=== PATIENT | female | born 1970 | race Caucasian/White ===

== ENCOUNTER → 2021-06-12 09:40 | Outpatient (CLI) | payer MEDICARE, MEDICAID, SELFPAY ==
[2021-06-12 20:22] LABS: SARS-CoV-2 RNA PCR Negative
== END ==
PROVIDERS: PCP Emergency Medicine; Visit Provider Emergency Medicine
DX: R68.89 Other general symptoms and signs (principal); Z20.822 Contact with and (suspected) exposure to COVID-19
CPT/HCPCS: C9803; U0003; U0005

== ENCOUNTER 2021-09-11 03:33 | Emergency (ER) | payer MEDICARE, MEDICAID, SELFPAY ==
[2021-09-11] VITALS (17 sets, daily range): BP systolic 91–111; BP diastolic 57–75; PULSE 68–87; RESP 12–20; TEMP 36.6; O2SAT 96–99
--- NOTE | ~2021-09-11 | XR_ITS ---
EXAMINATION: XR chest 2V DATE: 09/11/2021 04:33 INDICATION: Chest pain TECHNIQUE: PA and lateral views of the chest are obtained. COMPARISON: 01/29/2016 FINDINGS: The lungs are free of acute opacities. There is no pleural effusion or pneumothorax. The he art size is normal. There is a moderate-sized hiatal hernia. There is moderate thoracic spondylosis. IMPRESSION: 1. No acute cardiopulmonary abnormality. Reviewed, dictated and finalized at location A.
--- NOTE | 2021-09-11 03:36 | ECG_ITS ---
Measurements Intervals [place] Rate: 77 P: 37 [place]: 167 QRS: 27 QRSD: 92 T: 5 QT: 364 QTc: 414 Interpretive Statements SINUS RHYTHM NORMAL ECG NO PREVIOUS ECG AVAILABLE FOR COMPARISON Electronically Signed On 09-12-2021 17:54:43 CDT by Boone Fuller M.D.
[2021-09-11 03:52] LABS: Basophils Absolute Auto 0.1 K/mm3 (0.0-0.1); Basophils Percent Auto 0.8 % (0.2-1.2); Eosinophils Absolute Auto 0.4 K/mm3 (0-0.3); Hematocrit 41.7 % (37.0-47.0); Immature Granulocyte Absolute 0.03 K/mm3 (0.00-0.031); Immature Granulocyte Percent A 0.3 % (0-0.5); Lymphocytes Absolute Auto 3.04 K/mm3 (0.9-3.2); Lymphocytes Percent Auto 31.1 % (18.3-44.2); Mean Corpuscular HGB Conc 33.6 g/dl (32-36); Mean Corpuscular Hemoglobin 32.3 pg (26-34); Mean Corpuscular Volume 96.3 fl (80-100); Mean Platelet Volume 10.2 fl (7.4-10.4); Monocytes Absolute Auto 1.3 K/mm3 (0.1-0.6); Monocytes Percent Auto 13.2 % (2.6-8.5); Neutrophils Percent Auto 50.6 % (45.5-73.1); Platelet Count Result 233 k/mm3 (150-375); Red Blood Count 4.33 M/mm3 (4.2-5.4); Red Cell Distribution Width 11.7 % (11.5-14.5); White Blood Count 9.8 K/mm3 (4.5-10.0)
--- NOTE | 2021-09-11 03:54 | ED.CHESTPAIN ---
HPI - Chest Pain General Chief Complaint: Chest Pain Stated Complaint: abdominal pain Time Seen by Provider: 09/11/21 03:40 Source: patient History of Present Illness HPI narrative: 50-year-old female history of hypertension presenting to the emergency department for evaluation of hypertension and chest pain. Patient states that her blood pressure has been running high for the last few days. Patient started following a low-sodium diet. Patient states since that time she has had intermittent chest tightness and abdominal cramping. Patient states tonight she did have some right arm pain. Patient denies any associated shortness of breath. Patient did have similar symptoms previously and reports that she did have a CTA of the chest that was negative. Patient denies any prior history of PE or DVT. Related Data Allergies Allergy/AdvReac Type Severity Reaction Status Date / Time amphetamine Allergy Unknown TONGUE Verified 11/01/16 16:24 SWELLS dextroamphetamine Allergy Unknown TONGUE Verified 11/01/16 16:24 SWELLS metoclopramide Allergy Unknown JITTERY Verified 11/01/16 16:24 Review of Systems Review of Systems: see HPI All systems reviewed & are unremarkable except as noted in HPI and below Exam Narrative: APPEARANCE: Well appearing, no pain, no distress, well-nourished. HEAD: normocephalic, atraumatic. EYES: PERRLA/EOMI, conjunctivae clear. NOSE: Normal no drainage THROAT: Pharynx clear, no exudate. NECK: Supple. No adenopathy, no masses. RESPIRATORY: Airway patent, respirations nonlabored. Clear to auscultation bilaterally, no rales, rhonchi, wheezing. CARDIOVASCULAR: Regular rate and rhythm without murmurs rubs or gallops. ABDOMINAL: Soft, nontender, nondistended, normal bowel sounds MUSCULOSKELETAL: Moves all extremities. Strength/ROM intact, No edema, No calf tenderness. NEURO: Alert. Cranial nerves II through XII intact. Grossly intact SKIN: Warm, dry. Normal Color PSYCHIATRIC: Normal affect/mood. Course Course Emergency Course: Patient had a negative troponin. Arm pain had been constant for 11 hours. Chest x-ray shows no acute cardiopulmonary abnormality. Vital Signs Vital signs: Vital Signs Temperature 97.9 F 09/11/21 03:36 Pulse Rate 78 09/11/21 03:36 Respiratory Rate 16 09/11/21 03:36 Blood Pressure 111/75 09/11/21 03:36 Pulse Oximetry 99 09/11/21 03:36 Temperature 97.9 F 09/11/21 03:36 Pulse Rate 87 09/11/21 05:31 Respiratory Rate 20 09/11/21 05:31 Blood Pressure 91/57 L 09/11/21 05:31 Pulse Oximetry 99 09/11/21 05:31 MDM - Chest Pain Lab Data Attestation: I reviewed the patient's lab results. Result diagrams: 09/11/21 03:46 09/11/21 03:46 Labs: Lab Results 09/11/21 09/11/21 09/11/21 Range/Units 03:46 03:46 03:47 WBC 9.8 (4.5-10.0) K/mm3 RBC 4.33 (4.2-5.4) M/mm3 Hgb 14.0 (12.0-15.0) g/dL Hct 41.7 (37.0-47.0) % MCV 96.3 (80-100) fl MCH 32.3 (26-34) pg MCHC 33.6 (32-36) g/dl RDW 11.7 (11.5-14.5) % Plt Count 233 (150-375) k/mm3 MPV 10.2 (7.4-10.4) fl Immature Gran % (Auto) 0.3 (0-0.5) % Neut % (Auto) 50.6 (45.5-73.1) % Lymph % (Auto) 31.1 (18.3-44.2) % [place] % (Auto) 13.2 H (2.6-8.5) % Eos % (Auto) 4.0 (0-4.4) % Baso % (Auto) 0.8 (0.2-1.2) % Lymph # (Auto) 3.04 (0.9-3.2) K/mm3 [place] # (Auto) 1.3 H (0.1-0.6) K/mm3 Eos # (Auto) 0.4 H (0-0.3) K/mm3 Baso # (Auto) 0.1 (0.0-0.1) K/mm3 Abs Immat Gran (auto) 0.03 (0.00-0.031) K/mm3 Absolute Neuts (auto) 5.0 (1.3-6.7) K/mm3 Absolute Nucleated RBC 0.0 (0.0-0.012) K/mm3 Nucleated RBC % 0.0 (0.0-0.2) % PT 12.7 (11.1-14.7) Seconds INR 1.0 APTT 27.8 (22.3-36.8) SECONDS D-Dimer (<0.48) ug/mL Sodium 135 L (137-145) mmol/L Potassium 4.1 (3.4-5.0) mmol/L Chloride 102 (98-107) mmol/L Carbon Dioxide 26 (22-30) mmol/L Anion Gap 7 L
[2021-09-11] MEDS: ASPIRIN 81 MG CHEWABLE TABLET 162 MG (04:00)
[2021-09-11 04:01] LABS: Alanine Aminotransferase 18 U/L (4-35); Albumin Level 4.7 g/dL (3.5-5.1); Alkaline Phosphatase 96 U/L (38-126); Anion Gap 7 mmol/L (8-16); Aspartate Amino Transferase 30 U/L (14-36); Bilirubin,Total 0.5 mg/dL (0.2-1.3); Blood Urea Nitrogen 23 mg/dL (7-17); Calcium 9.2 mg/dL (8.4-10.2); Carbon Dioxide 26 mmol/L (22-30); Chloride 102 mmol/L (98-107); Estimated CRCL calculation 88 ml/min; Estimated Glomerular Filt Rate > 60; Glucose 101 mg/dL (65-110); Lipase 152 U/L (23-300); Potassium 4.1 mmol/L (3.4-5.0); Sodium 135 mmol/L (137-145)
[2021-09-11 04:02] LABS: Prothrombin Time 12.7 Seconds (11.1-14.7)
[2021-09-11 04:03] LABS: Partial Thromboplastin Time 27.8 SECONDS (22.3-36.8)
[2021-09-11] MEDS: ALBUTEROL SULFATE NEB 2.5 MG/0.5 ML INH 5 MG INHALATION (04:09)
[2021-09-11 04:22] LABS: D Dimer 0.31 ug/mL (<0.48)
[2021-09-11 04:25] LABS: Troponin I < 0.012 ng/mL (0.000-0.034)
== END 2021-09-11 05:47 | disposition home or self-care (01) ==
PROVIDERS: Emergency Provider Emergency Medicine; PCP Emergency Medicine
DX: R07.89 Other chest pain (principal); M79.601 Pain in right arm; I10 Essential (primary) hypertension
CPT/HCPCS: 36415; 71046; 80053; 83690; 84484; 85025; 85380; 85610; 85730; 93005; 94640; 99284; A9270

== ENCOUNTER 2021-12-20 12:14 | Emergency (ER) | payer OTHER, SELFPAY ==
[2021-12-20] VITALS (7 sets, daily range): BP systolic 112–153; BP diastolic 62–112; PULSE 63–87; RESP 13–18; TEMP 36.4; O2SAT 97–99
--- NOTE | ~2021-12-20 | XR_ITS ---
EXAMINATION: XR chest 2V DATE: 12/20/2021 12:43 INDICATION: Chest pain. Upper abdominal pain. TECHNIQUE: PA and lateral views of the chest were obtained. COMPARISON: Chest radiograph dated 09/11/21 FINDINGS: The lungs remain clear with no focal airspace opacities, pulmonary edema, pleural effusion or pneumot horax. Moderate sized hiatal hernia. Cardiomediastinal silhouette is normal. Mild thoracic spondylosi s. IMPRESSION: 1. No acute cardiopulmonary disease. 2. Moderate-sized hiatal hernia. Reviewed, dictated and finalized at location A.
--- NOTE | 2021-12-20 12:21 | ED.CHESTPAIN ---
HPI - Chest Pain General Chief Complaint: Chest Pain Stated Complaint: chest pain Time Seen by Provider: 12/20/21 12:21 History of Present Illness HPI narrative: The patient is a 51-year-old female with history of gastric sleeve, GERD, hypertension presenting to the emergency department for evaluation anterior chest pain. Patient reports the pain is been present over the past 16 days. Patient reports the pain is intermittent in nature with associated nausea and diaphoresis, but denies nausea or diaphoresis currently. She denies any current neck pain, radiation of pain to the shoulder. She denies palpitations, shortness of breath, cough or hemoptysis. No syncopal or near syncopal events. Patient denies leg swelling or calf pain. Denies recent long car or air travel. No recent immobility or surgical history. She denies history of DVT or PE in the past. No known history of recent COVID infection. Patient reports the pain is aching, burning in nature in the epigastric area of her upper abdomen which radiates into her chest. Patient denies any reflux type symptoms. She denies burping, belching, other abdominal pain or distention. She denies ripping or tearing sensation to the flank. No dysuria, hematuria, constipation or diarrhea. Related Data Home Medications Medication Instructions Recorded Confirmed albuterol sulfate 90 mcg/actuation inhalation 12/20/21 aerosol inhaler bupropion HCl 100 mg tablet mg PO 12/20/21 12/20/21 buspirone 7.5 mg tablet mg 12/20/21 carbamazepine 200 mg tablet mg 12/20/21 irbesartan 150 tablet 12/20/21 mg-hydrochlorothiazide 12.5 mg tablet valacyclovir 500 mg tablet mg 12/20/21 zolpidem 10 mg tablet mg 12/20/21 Allergies Allergy/AdvReac Type Severity Reaction Status Date / Time amphetamine Allergy Unknown TONGUE Verified 12/20/21 12:25 SWELLS dextroamphetamine Allergy Unknown TONGUE Verified 12/20/21 12:25 SWELLS metoclopramide Allergy Unknown JITTERY Verified 12/20/21 12:25 Review of Systems Review of Systems: CONSTITUTIONAL: Denies fever, chills, or sweats. EYES: Denies visual changes, redness, or discharge. ENT: Denies rhinorrhea, congestion, sore throat, or otalgia. CARDIOVASCULAR: Reports chest pain without palpitations or edema. RESPIRATORY: Denies cough or dyspnea. GASTROINTESTINAL: Reports epigastric pain, denies n/v/diarrhea GENITOURINARY: Denies dysuria or hematuria. SKIN: Denies rash or itching. MUSCULOSKELETAL: Denies back pain, joint pain, or myalgia. NEUROLOGIC: Denies headache, numbness, or weakness. [facility] Social History Social History (Updated 12/20/21 @ 13:09 by Luna Ren MD) Smoking status: Never smoker Alcohol intake: never Substance use: never Living arrangements: with family Gender identity (if verbalized by the patient): Female Exam Narrative: GENERAL: Awake, alert, conversant HEAD: Normocephalic, atraumatic. EYES: PERRLA and EOMI. ENT: Nares clear, no rhinorrhea or epistaxis. Mucous membranes moist. NECK: Supple. CHEST: No respiratory distress, breathing even and non labored HEART: Regular rate, sinus rhythm ABDOMEN:Non distended, non tender, positive mild epigastric tenderness, no right upper quadrant tenderness, no rebound, rigidity or guarding EXTREMITIES: Normal range of motion. No edema. SKIN: Warm, dry, no rash. NEURO:No focal deficits. Alert and oriented x3 Course Vital Signs Vital signs: Vital Signs Temperature 36.4 C L 12/20/21 12:17 Pulse Rate 87 12/20/21 12:17 Respiratory Rate 18 12/20/21 12:17 Blood Pressure 153/112 H 12/20/21 12:17 Pulse Oximetry 98 12/20/21 12:17 Oxygen Delivery Room Air 12/20/21 12:17 Temperature 36.4 C L 12/20/21 12:17 Pulse Rate 65 12/20/21 15:01 Respiratory Rate 18 12/20/21 15:01 Blood Pressure 116/70 12/20/21 15:01 Pulse Oximetry 99 12/20/21 15:01 Oxygen Delivery Room Air 12/20/21 12:17 MDM - Chest Pain MDM Narrative M
--- NOTE | 2021-12-20 12:24 | ECG_ITS ---
Measurements Intervals [place] Rate: 93 P: 38 [place]: 153 QRS: 34 QRSD: 97 T: 16 QT: 354 QTc: 441 Interpretive Statements SINUS RHYTHM NONSPECIFIC ST & T-WAVE ABNORMALITY- INFERIOR LEADS BASELINE ARTIFACT- I, II, III, AVR, AVL, AVF, V1-V6 BORDERLINE ECG Electronically Signed On 12-20-2021 22:32:02 CDT by Ilan Fleming D.O.
[2021-12-20 12:35] LABS: Basophils Absolute Auto 0.1 K/mm3 (0.0-0.1); Basophils Percent Auto 0.9 % (0.2-1.2); Eosinophils Absolute Auto 0.4 K/mm3 (0-0.3); Eosinophils Percent Auto 4.2 % (0-4.4); Hematocrit 37.5 % (37.0-47.0); Hemoglobin 12.9 g/dL (12.0-15.0); Immature Granulocyte Absolute 0.01 K/mm3 (0.00-0.031); Immature Granulocyte Percent A 0.1 % (0-0.5); Lymphocytes Absolute Auto 2.65 K/mm3 (0.9-3.2); Lymphocytes Percent Auto 30.7 % (18.3-44.2); Mean Corpuscular HGB Conc 34.4 g/dl (32-36); Mean Corpuscular Hemoglobin 31.9 pg (26-34); Mean Corpuscular Volume 92.8 fl (80-100); Mean Platelet Volume 10.3 fl (7.4-10.4); Monocytes Percent Auto 11.8 % (2.6-8.5); Neutrophils Absolute Auto 4.5 K/mm3 (1.3-6.7); Neutrophils Percent Auto 52.3 % (45.5-73.1); Platelet Count Result 220 k/mm3 (150-375); Red Blood Count 4.04 M/mm3 (4.2-5.4); Red Cell Distribution Width 12.1 % (11.5-14.5); White Blood Count 8.6 K/mm3 (4.5-10.0)
[2021-12-20 12:46] LABS: Prothrombin Time 12.7 Seconds (11.1-14.7)
[2021-12-20 12:47] LABS: Partial Thromboplastin Time 26.8 SECONDS (22.3-36.8)
[2021-12-20 12:52] LABS: Alanine Aminotransferase 27 U/L (6-35); Albumin Level 4.7 g/dL (3.5-5.1); Alkaline Phosphatase 85 U/L (38-126); Anion Gap 10 mmol/L (8-16); Aspartate Amino Transferase 30 U/L (14-36); Bilirubin,Total 0.5 mg/dL (0.2-1.3); Blood Urea Nitrogen 22 mg/dL (7-17); Calcium 9.1 mg/dL (8.4-10.2); Carbon Dioxide 24 mmol/L (22-30); Chloride 105 mmol/L (98-107); Estimated CRCL calculation 73 ml/min; Estimated Glomerular Filt Rate 52; Glucose 106 mg/dL (65-110); Lipase 161 U/L (23-300); Potassium 3.5 mmol/L (3.4-5.0); Sodium 139 mmol/L (137-145)
[2021-12-20] MEDS: ASPIRIN 81 MG CHEWABLE TABLET 324 MG PO (13:00)
[2021-12-20 13:02] LABS: Troponin I < 0.012 ng/mL (0.000-0.034)
[2021-12-20 13:48] LABS: D Dimer 0.34 ug/mL (<0.48)
[2021-12-20 15:51] LABS: Troponin I < 0.012 ng/mL (0.000-0.034)
== END 2021-12-20 16:23 | disposition home or self-care (01) ==
PROVIDERS: Emergency Provider Emergency Medicine
DX: R07.89 Other chest pain (principal); R10.13 Epigastric pain; I10 Essential (primary) hypertension; K21.9 Gastro-esophageal reflux disease without esophagitis
CPT/HCPCS: 36415; 71046; 80053; 83690; 84484; 85025; 85380; 85610; 85730; 93005; 99284; A9270

== ENCOUNTER 2022-05-07 07:01 | Emergency (ER) | payer OTHER, SELFPAY ==
[2022-05-07] VITALS (18 sets, daily range): BP systolic 144–177; BP diastolic 79–97; PULSE 62–98; RESP 11–19; TEMP 36.1; O2SAT 97–100
--- NOTE | ~2022-05-07 | XR_ITS ---
EXAMINATION: XR chest 1V portable DATE: 05/07/2022 07:48 INDICATION: Chest pain and shortness of breath TECHNIQUE: frontal and lateral views of the chest were obtained. COMPARISON: Chest radiograph dated 12/20/2021 FINDINGS: Again seen is gas within a moderate-sized hiatal hernia at the medial left lower lung zone no airspac e opacities, pulmonary edema, pleural effusion or pneumothorax. Heart size is normal. IMPRESSION: 1. No acute cardiopulmonary disease. 2. Moderate-sized hiatal hernia. Reviewed, dictated and finalized at location A. F [employer]
--- NOTE | 2022-05-07 07:03 | ECG_ITS ---
Measurements Intervals [place] Rate: 99 P: 44 [place]: 167 QRS: 29 QRSD: 89 T: 17 QT: 324 QTc: 417 Interpretive Statements SINUS RHYTHM NONSPECIFIC ST AND T WAVE ABNORMALITIES COMPARED TO ECG 12/20/2021 12:22:12 NO SIGNIFICANT CHANGES Electronically Signed On 05-07-2022 11:25:02 [employer] MAN by Jame Angulo M.D.
--- NOTE | 2022-05-07 07:03 | PC.NURSE ---
Patient refused w/c to room.
[2022-05-07 07:25] LABS: Basophils Absolute Auto 0.1 K/mm3 (0.0-0.1); Eosinophils Absolute Auto 0.3 K/mm3 (0-0.3); Eosinophils Percent Auto 4.6 % (0-4.4); Hematocrit 37.4 % (37.0-47.0); Immature Granulocyte Absolute 0.05 K/mm3 (0.00-0.031); Immature Granulocyte Percent A 0.8 % (0-0.5); Lymphocytes Percent Auto 28.1 % (18.3-44.2); Mean Corpuscular HGB Conc 34.8 g/dl (32-36); Mean Corpuscular Hemoglobin 31.7 pg (26-34); Mean Corpuscular Volume 91.2 fl (80-100); Mean Platelet Volume 9.9 fl (7.4-10.4); Monocytes Absolute Auto 0.6 K/mm3 (0.1-0.6); Monocytes Percent Auto 9.1 % (2.6-8.5); Neutrophils Absolute Auto 3.4 K/mm3 (1.3-6.7); Neutrophils Percent Auto 56.4 % (45.5-73.1); Platelet Count Result 200 k/mm3 (150-375); Red Cell Distribution Width 11.8 % (11.5-14.5); White Blood Count 6.1 K/mm3 (4.5-10.0)
[2022-05-07] MEDS: ASPIRIN 81 MG CHEWABLE TABLET 162 MG PO (07:28)
[2022-05-07] MEDS: MORPHINE SULFATE (*CRX) 2 MG/ML INJ IV PUSH (07:29)
--- NOTE | 2022-05-07 07:29 | ED.CHESTPAIN ---
HPI - Chest Pain General Chief Complaint: Chest Pain Stated Complaint: SHELBY, chest tightness, high bp Time Seen by Provider: 05/07/22 07:14 History of Present Illness HPI narrative: Pt recently started on BP meds. Awoke about 0645 with slight tightness in chest. Pt checked BP and it was elevated. Pt says she has history of anxiety so was not sure if PC was anxiety or cardiac but thought it should get checked out. Pt has HTN but no hypercholesterolemia, DM, or FH. Pt does not smoke. Nothing makes the tightness better or worse. Pt took two baby asa prior to coming to ER. Related Data Home Medications Medication Instructions Recorded Confirmed albuterol sulfate 90 mcg/actuation inhalation 12/20/21 aerosol inhaler bupropion HCl 100 mg tablet mg PO 12/20/21 12/20/21 buspirone 7.5 mg tablet mg 12/20/21 carbamazepine 200 mg tablet mg 12/20/21 irbesartan 150 tablet 12/20/21 mg-hydrochlorothiazide 12.5 mg tablet valacyclovir 500 mg tablet mg 12/20/21 zolpidem 10 mg tablet mg 12/20/21 Allergies Allergy/AdvReac Type Severity Reaction Status Date / Time amphetamine Allergy Unknown TONGUE Verified 12/20/21 12:25 SWELLS dextroamphetamine Allergy Unknown TONGUE Verified 12/20/21 12:25 SWELLS metoclopramide AdvReac Unknown JITTERY Verified 05/07/22 07:15 Review of Systems Review of Systems: All systems reviewed & are unremarkable except as noted in HPI and below PMFSH Social History Social History (Updated 12/20/21 @ 13:09 by Luna Ren MD) Smoking status: Never smoker Alcohol intake: never Substance use: never Gender identity (if verbalized by the patient): Female Exam Const: General: healthy appearing Nutritional Appearance: well nourished Orientation/consciousness: patient oriented x3 Limitations: no limitations Eyes: Conjunctivae: conjunctivae normal EOM: EOMs intact bilaterally Neck: Neck: normal visual inspection Chest: Chest palpation & inspection: normal inspection of the chest Resp: Effort & Inspection: normal respiratory effort Auscultation: clear to auscultation bilaterally Cardio: Rate: regular rate Rhythm: regular rhythm GI: Auscultation: normal bowel sounds Skin: General skin exam: normal color Rashes: no rashes Wounds: no wounds Neuro: General: patient oriented x3 Speech: normal speech Extrem: General: normal to inspection and no clubbing, cyanosis or edema Psych: Mental Status: mental status grossly normal Affect: normal affect Attitude: cooperative Course Course Emergency Course: pt chest tightness resolved and Bp came down. With two sets of negative enzymes and low HEART score pt should be safe for discharge and follow up with CAD being unlikely. H-0 E-0 A-1 R-1 T-0=2 Vital Signs Vital signs: Vital Signs Temperature 97 F L 05/07/22 07:07 Pulse Rate 98 05/07/22 07:07 Respiratory Rate 18 05/07/22 07:07 Blood Pressure 177/97 H 05/07/22 07:07 Pulse Oximetry 98 05/07/22 07:07 Oxygen Delivery Room Air 05/07/22 07:07 Temperature 97 F L 05/07/22 07:59 Pulse Rate 78 05/07/22 12:05 Respiratory Rate 18 05/07/22 12:05 Blood Pressure 156/82 H 05/07/22 12:05 Pulse Oximetry 98 05/07/22 12:05 Oxygen Delivery Room Air 05/07/22 07:10 MDM - Chest Pain Differential Diagnosis Differential diagnosis: Likely atypical chest pain, chest pain and other (anxiety, NSTEMI) Lab Data Attestation: I reviewed the patient's lab results. 05/07/22 07:16 05/07/22 07:16 Labs: Lab Results 05/07/22 05/07/22 05/07/22 Range/Units 07:16 07:16 07:16 WBC 6.1 (4.5-10.0) K/mm3 RBC 4.10 L (4.2-5.4) M/mm3 Hgb 13.0 (12.0-15.0) g/dL Hct 37.4 (37.0-47.0) % MCV 91.2 (80-100) fl MCH 31.7 (26-34) pg MCHC 34.8 (32-36) g/dl RDW 11.8 (11.5-14.5) % Plt Count 200 (150-375) k/mm3 MPV 9.9 (7.4-10.4) fl Immature Gran % (Auto) 0.8 H (0-0.5) % Neut % (A
[2022-05-07 07:33] LABS: Alanine Aminotransferase 20 U/L (6-35); Albumin Level 4.5 g/dL (3.5-5.1); Alkaline Phosphatase 109 U/L (38-126); Anion Gap 11 mmol/L (8-16); Aspartate Amino Transferase 29 U/L (14-36); Bilirubin,Total 0.6 mg/dL (0.2-1.3); Blood Urea Nitrogen 9 mg/dL (7-17); Calcium 9.6 mg/dL (8.4-10.2); Carbon Dioxide 22 mmol/L (22-30); Chloride 108 mmol/L (98-107); Estimated CRCL calculation 114 ml/min; Estimated Glomerular Filt Rate > 60; Glucose 127 mg/dL (65-110); Lipase 85 U/L (23-300); Potassium 4.1 mmol/L (3.4-5.0); Sodium 141 mmol/L (137-145)
[2022-05-07 07:44] LABS: Troponin I < 0.012 ng/mL (0.000-0.034)
[2022-05-07 08:08] LABS: NT Pro B Type Natriuretic Pept 215 pg/mL (5-100)
[2022-05-07 09:23] LABS: Prothrombin Time 12.9 Seconds (11.1-14.7)
[2022-05-07 09:24] LABS: Partial Thromboplastin Time 27.9 SECONDS (22.3-36.8)
[2022-05-07 11:08] LABS: Troponin I < 0.012 ng/mL (0.000-0.034)
== END 2022-05-07 12:10 | disposition home or self-care (01) ==
PROVIDERS: Emergency Provider Emergency Medicine
DX: R07.89 Other chest pain (principal); F41.9 Anxiety disorder, unspecified; I10 Essential (primary) hypertension; R94.31 Abnormal electrocardiogram [ECG] [EKG]
CPT/HCPCS: 36415; 71045; 80053; 83690; 83880; 84484; 85025; 85610; 85730; 93005; 96374; 99284; A9270; J2270

== ENCOUNTER 2023-07-12 20:25 | Emergency (ER) | payer OTHER, SELFPAY ==
--- NOTE | ~2023-07-12 | CT_ITS ---
EXAMINATION: CT abdomen pelvis w con INDICATION: Elevated liver enzymes TECHNIQUE: Computed tomographic images of the abdomen and pelvis were obtained after the administrati on of 100 cc of Omnipaque 350 intravenous contrast. The dose-length product (DLP) was 1342.75 mGy-cm. Automated exposure control and iterative reconstruction technique were employed. COMPARISON: None available FINDINGS: The lung bases are clear. The heart size is normal. There is a moderate-sized sliding hiata l hernia. There appear to be changes of gastric sleeve surgery. Punctate calcifications in an otherwi se normal spleen likely represent healed granulomatous disease. The liver, pancreas, gallbladder, and adrenal glands are normal. The kidneys are unremarkable. No pathologically enlarged abdominal or pel natalie lymph nodes are identified. No free intraperitoneal gas or evidence of bowel obstruction. The nikhil endix is normal. There is moderate lumbar spondylosis. IMPRESSION: 1. No CT correlate for the patient's symptoms. 2. Moderate size hiatal hernia with probable changes of gastric sleeve surgery. Reviewed, dictated and finalized at location F. OR CARE SPECIALIST
[2023-07-12 21:05] VITALS: BP 113/64; PULSE 93; RESP 15; TEMP 36.9; O2SAT 98
[2023-07-13] VITALS (9 sets, daily range): BP systolic 122–131; BP diastolic 80–81; PULSE 67–75; RESP 12–19; O2SAT 93–100
[2023-07-13] MEDS: SODIUM CHLORIDE 0.9% IV 1,000 ML 999 ML IV CONT (01:21)
[2023-07-13] MEDS: ONDANSETRON INJ 4 MG/2 ML VIAL IV PUSH (01:22)
[2023-07-13] MEDS: MORPHINE SULFATE (*CRX) 4 MG/ML INJ IV PUSH ×2 (01:22→04:36)
[2023-07-13 01:28] LABS: Appearance Urine Clear (Clear); Bacteria Urine None Seen /hpf; Bilirubin Urine 1+ (Negative); Blood Urine Negative (Negative); Color Urine Dark Yellow (Yellow); Glucose Urine UA Negative (Negative); Ketones Urine Trace mg/dL (Negative); Leukocyte Esterase Ur 1+ LEU/UL (Negative); Need Manual Microscopic Reviewed; Nitrate Urine Negative (Negative); Protein Urine 1+ mg/dL (Negative); RBC Urine 0-2 /hpf (0-2); Squamous Epithelial Cell Urine Moderate /hpf (Few); pH Urine 5.5 (5.0-9.0)
[2023-07-13 01:37] LABS: Add Urine Microscopic? YES
[2023-07-13 01:54] LABS: Basophils Absolute Auto 0.1 K/mm3 (0.0-0.1); Basophils Percent Auto 0.8 % (0.2-1.2); Eosinophils Absolute Auto 0.3 K/mm3 (0-0.3); Eosinophils Percent Auto 2.2 % (0-4.4); Hematocrit 41.3 % (37.0-47.0); Hemoglobin 13.6 g/dL (12.0-15.0); Immature Granulocyte Absolute 0.03 K/mm3 (0.00-0.031); Immature Granulocyte Percent A 0.3 % (0-0.5); Lymphocytes Absolute Auto 2.18 K/mm3 (0.9-3.2); Lymphocytes Percent Auto 18.7 % (18.3-44.2); Mean Corpuscular HGB Conc 32.9 g/dl (32-36); Mean Corpuscular Hemoglobin 31.5 pg (26-34); Mean Corpuscular Volume 95.6 fl (80-100); Mean Platelet Volume 10.1 fl (7.4-10.4); Monocytes Absolute Auto 1.1 K/mm3 (0.1-0.6); Monocytes Percent Auto 9.4 % (2.6-8.5); Neutrophils Percent Auto 68.6 % (45.5-73.1); Platelet Count Result 255 k/mm3 (150-375); Red Blood Count 4.32 M/mm3 (4.2-5.4); Red Cell Distribution Width 12.3 % (11.5-14.5); White Blood Count 11.7 K/mm3 (4.5-10.0)
[2023-07-13 02:12] LABS: Alanine Aminotransferase 36 U/L (6-35); Albumin Level 4.6 g/dL (3.5-5.1); Alkaline Phosphatase 78 U/L (38-126); Anion Gap 10 mmol/L (8-16); Aspartate Amino Transferase 47 U/L (14-36); Bilirubin,Total 0.6 mg/dL (0.2-1.3); Blood Urea Nitrogen 23 mg/dL (7-17); Calcium 9.4 mg/dL (8.4-10.2); Carbon Dioxide 25 mmol/L (22-30); Chloride 105 mmol/L (98-107); Estimated CRCL calculation 74 ml/min; Estimated Glomerular Filt Rate 52; Glucose 114 mg/dL (65-110); Lipase 172 U/L (23-300); Potassium 4.4 mmol/L (3.4-5.0); Sodium 140 mmol/L (137-145)
[2023-07-13 02:13] LABS: Lactic Acid Reflex 0.9 mmol/L (0.7-2.0)
--- NOTE | 2023-07-13 06:38 | ED.GENADULT ---
HPI - General Adult General Chief complaint: Abdominal Pain Stated complaint: abdominal pain Time Seen by Provider: 07/13/23 00:44 History of Present Illness HPI narrative: patient 52-year-old female who presents emergency department chief complaint of abdominal pain. Patient reports that she has had recurrent urinary tract infections was recently started on Cipro patient reports started having pain in the left flank radiates to the front part of the abdomen. The patient was instructed by her primary care provider that she should come to the emergency department for further evaluation since her liver enzymes were slightly elevated. Related Data Home Medications Medication Instructions Recorded Confirmed albuterol sulfate 90 mcg/actuation inhalation 12/20/21 aerosol inhaler bupropion HCl 100 mg tablet mg PO 12/20/21 12/20/21 buspirone 7.5 mg tablet mg 12/20/21 carbamazepine 200 mg tablet mg 12/20/21 irbesartan 150 tablet 12/20/21 mg-hydrochlorothiazide 12.5 mg tablet valacyclovir 500 mg tablet mg 12/20/21 zolpidem 10 mg tablet mg 12/20/21 Allergies Allergy/AdvReac Type Severity Reaction Status Date / Time amphetamine Allergy Unknown TONGUE Verified 07/13/23 00:46 SWELLS dextroamphetamine Allergy Unknown TONGUE Verified 07/13/23 00:46 SWELLS metoclopramide AdvReac Unknown JITTERY Verified 07/13/23 00:46 Review of Systems Review of Systems: A 10 system review of systems was completed on the patient and is negative except for what is stated in the HPI. Nursing and ancillary documentation was reviewed. [facility] Social History Social History Smoking status: Never smoker Alcohol intake: never Substance use: never Living arrangements: with family Gender identity (if verbalized by the patient): Female Exam Narrative: GENERAL: Well-appearing, well-nourished, and in no acute distress. HEAD: Normocephalic, atraumatic. EYES: PERRLA and EOMI. ENT: Nares clear, no rhinorrhea or epistaxis. Mucous membranes moist. NECK: Supple. CHEST: Clear to auscultation. No respiratory distress. HEART: Regular rate and rhythm. No murmur heard. Normal peripheral pulses. ABDOMEN: Soft, Diffuse mild tenderness, nondistended, normal active bowel sounds. EXTREMITIES: Normal range of motion. No edema. SKIN: Warm, dry, no rash. NEURO: No focal deficits. Alert and oriented x3. PSYCH: Normal mood and affect. Course Vital Signs Vital signs: Vital Signs Temperature 36.9 C 07/12/23 21:05 Pulse Rate 93 07/12/23 21:05 Respiratory Rate 15 07/12/23 21:05 Blood Pressure 113/64 07/12/23 21:05 Pulse Oximetry 98 07/12/23 21:05 Oxygen Delivery Room Air 07/12/23 21:05 Temperature 36.9 C 07/12/23 21:05 Pulse Rate 67 07/13/23 05:01 Respiratory Rate 12 07/13/23 05:01 Blood Pressure 122/81 07/13/23 05:01 Pulse Oximetry 99 07/13/23 05:01 Oxygen Delivery Room Air 07/12/23 21:05 Medical Decision Making MDM Narrative Medical decision making narrative: differential diagnosis includes UTI, dehydration, colitis, diverticulitis, cholecystitis, laboratory studies were obtained on the patient showed a white count of 11.7 electrolytes showed a creatinine 1.1 BUN of 23 glucose 114 lactate is 0.9 bilirubin is 0.6 AST and ALT were 47 and 36 respectively lipase is normal at 172 urinalysis showed 6-10 white blood cells 1+ leukocyte esterase CT scan showed 1. No CT correlate for the patient's symptoms. 2. Moderate size hiatal hernia with probable changes of gastric sleeve surgery. Vital Signs Vital Signs: Vital Signs Temperature 36.9 C 07/12/23 21:05 Pulse Rate 93 07/12/23 21:05 Respiratory Rate 15 07/12/23 21:05 Blood Pressure 113/64 07/12/23 21:05 Pulse Oximetry 98 07/12/23 21:05 Oxygen Delivery Room Air 07/12/23 21:05 Temperature 36.9 C 07/12/23 21:05 Pulse Rate 67
== END 2023-07-13 06:58 | disposition home or self-care (01) ==
PROVIDERS: Emergency Provider Emergency Medicine
DX: N39.0 Urinary tract infection, site not specified (principal); K44.9 Diaphragmatic hernia without obstruction or gangrene; Z98.84 Bariatric surgery status
CPT/HCPCS: 36415; 74177; 80053; 81001; 83605; 83690; 85025; 87086; 96361; 96374; 96375; 96376; 99284; J2270; J2405; J7030; Q9967